=== PATIENT | female | born 1955 | race Caucasian/White ===

== ENCOUNTER → 2016-10-13 | Outpatient (CLI) | payer BC ==
[~2016-10-13] MED LIST: LIPITOR10 MG PO; MIACALCIN SPRAY1 EA NAS; NKHM PO; NORFLEX100 MG PO; ORACEA40 MG PO; PREDNICOT20 MG PO; VICO10300 PO; VIVELLE; VIVELLE-DO0.05 MG/24
== END | disposition home or self-care (01) ==
LOC: RAD 10:38
DX: Z13.820 Encounter for screening for osteoporosis (principal); M81.0 Age-related osteoporosis without current pathological fracture; N95.9 Unspecified menopausal and perimenopausal disorder